=== PATIENT | male | born 1965 ===

== ENCOUNTER → 2021-11-12 | Day surgery (SDC) | payer SELFPAY ==
[~2021-11-12] VITALS: Ht 172.7 cm; Wt 84.4 kg
[~2021-11-12] MED LIST: BACTRIM DS TAB1 EACH PO; PERCOCET 5-3251 EACH PO
== END | disposition home or self-care (01) ==
LOC: FAS 09:09
DX: L72.3 Sebaceous cyst (principal); L08.9 Local infection of the skin and subcutaneous tissue, unspecified; Z20.822 Contact with and (suspected) exposure to COVID-19; F17.210 Nicotine dependence, cigarettes, uncomplicated; Z88.8 Allergy status to other drugs, medicaments and biological substances; Z72.89 Other problems related to lifestyle
CPT/HCPCS: 87070; 87075; 87077; 87186; 87205; 93005; J1100; J1885; J2250; J2405; J2704; J3010; J7120; U0002